=== PATIENT | male | born 1965 | race Caucasian/White ===

== ENCOUNTER 2017-01-19 14:03 | Emergency (ER) | payer OTHER ==
--- NOTE | 2017-01-19 16:18 | ER Document Report ---
ED Medical Screen (RME) - General Chief Complaint: Leg Swelling Stated Complaint: RIGHT LEG PAIN, SWELLING, ANKLE PAIN Time seen by provider: 16:18 Mode of Arrival: Ambulatory Information source: Patient Notes: This is a 51-year-old man with a history of pedal edema presents to the emergency room with swelling of the right lower extremity. Patient denies any fever, chills, nausea vomiting. Patient denies chest pain or shortness of breath. TRAVEL OUTSIDE OF THE [place] IN LAST 30 DAYS: No - Related Data Allergies/Adverse Reactions: No Known Allergies Allergy (Verified 01/19/17 14:51) Past Medical History - Social History Frequency of alcohol use: None Drug Abuse: None Renal/ Medical History: Denies: Hx Peritoneal Dialysis Musculoskeltal Medical History: Reports Hx Arthritis Past Surgical History: Reports: Hx Orthopedic Surgery - left elbow - Immunizations Hx Diphtheria, Pertussis, Tetanus Vaccination: Yes - 2010 Physical Exam - Vital signs Vitals: Temp Pulse Resp BP Pulse Ox 98.6 F 82 20 148/83 H 93 01/19/17 14:50 01/19/17 14:50 01/19/17 14:50 01/19/17 14:50 01/19/17 14:50 Course - Vital Signs Vital signs: Temp Pulse Resp BP Pulse Ox 98.6 F 82 20 148/83 H 93 01/19/17 14:50 01/19/17 14:50 01/19/17 14:50 01/19/17 14:50 01/19/17 14:50
[2017-01-19 16:51] LABS: ABSOLUTE EOSINOPHILS # (AUTO) 0.3 10^3/uL (0.0-0.6); ABSOLUTE LYMPHOCYTES (AUTO) 3.5 10^3/uL (0.5-4.7); ABSOLUTE MONOCYTES (AUTO) 1.3 10^3/uL (0.1-1.4); ABSOLUTE NEUT (AUTO) 3.3 10^3/uL (1.7-8.2); BASOPHILS % (AUTO) 0.4 % (0-2); EOSINOPHILS % (AUTO) 3.8 % (0-6); HEMATOCRIT 48.1 % (37.9-51.0); HEMOGLOBIN 16.4 g/dL (13.5-17.0); HGB HCT DIFFERENCE 1.1; LYMPHOCYTES % (AUTO) 40.9 % (13-45); MEAN CORPUSCULAR HEMOGLOBIN 29.3 pg (27.0-33.4); MEAN CORPUSCULAR HGB CONC 34.1 g/dL (32.0-36.0); MEAN CORPUSCULAR VOLUME 86 fl (80-97); MONOCYTES % (AUTO) 15.5 % (3-13); RED CELL DISTRIBUTION WIDTH 14.1 % (11.5-14.0); SEGMENTED NEUTROPHILS % (AUTO) 39.4 % (42-78); WHITE BLOOD COUNT 8.5 10^3/uL (4.0-10.5)
[2017-01-19 17:07] LABS: ALANINE AMINOTRANSFERASE 39 U/L (21-72); ALBUMIN 4.6 g/dL (3.5-5.0); ALKALINE PHOSPHATASE 118 U/L (38-126); ANION GAP 13 (5-19); ASPARTATE AMINO TRANSFERASE 27 U/L (17-59); BILIRUBIN,DIRECT 0.3 mg/dL (0.0-0.4); BILIRUBIN,TOTAL 0.5 mg/dL (0.2-1.3); BLOOD UREA NITROGEN 18 mg/dL (7-20); CALCIUM 9.9 mg/dL (8.4-10.2); CARBON DIOXIDE 30 mmol/L (22-30); CHLORIDE 100 mmol/L (98-107); CREATININE RESULT 0.83 mg/dL (0.52-1.25); GLUCOSE 91 mg/dL (75-110); POTASSIUM 4.9 mmol/L (3.6-5.0); TOTAL PROTEIN 7.7 g/dL (6.3-8.2)
--- NOTE | 2017-01-19 18:10 | ER Document Report ---
ED Extremity Problem, Lower - General Time seen by provider: 17:38 Mode of Arrival: Ambulatory Information source: Patient TRAVEL OUTSIDE OF THE [place] IN LAST 30 DAYS: No - HPI Location: Leg Occurred: Other - Refer to HPI notes Onset/Duration: Gradual Recent injury: No <BRAXTON PALM - Last Filed: 01/19/17 21:32> <EUNICE ARMIJO - Last Filed: 01/19/17 21:33> - General Chief Complaint: Leg Swelling Stated Complaint: RIGHT LEG PAIN, SWELLING, ANKLE PAIN Notes: Patient is a 51-year-old male presents to emergency department for some redness , swelling and pain to his right leg. Patient denies any recent travel, history of cancer, recent surgeries, or hormone replacement. Patient states he thought he was feverish last night but did not take his temperature. Patient denies any chest pain or cough. Patient states he takes Lasix for chronic leg edema. Patient states that he recently had a Doppler ultrasound of the same leg done at [facility]; he states this ultrasound showed some superficial blood clots. Patient's primary care physician is Dr. Nath. Patient has no known allergies. (BRAXTON PALM) - Related Data Allergies/Adverse Reactions: No Known Allergies Allergy (Verified 01/19/17 14:51) Past Medical History - General Information source: Patient - Social History Smoking Status: Current Every Day Smoker Frequency of alcohol use: None Drug Abuse: None Family History: None Patient has suicidal ideation: No Patient has homicidal ideation: No Musculoskeltal Medical History: Reports Hx Arthritis Skin Medical History: Reports Other - Chronic swelling to the lower extremities Past Surgical History: Reports: Hx Orthopedic Surgery - left elbow - Immunizations Hx Diphtheria, Pertussis, Tetanus Vaccination: Yes - 2010 <BRAXTON PALM - Last Filed: 01/19/17 21:32> Review of Systems - Review of Systems Constitutional: No symptoms reported EENT: No symptoms reported Cardiovascular: No symptoms reported Respiratory: No symptoms reported Gastrointestinal: No symptoms reported Genitourinary: No symptoms reported Male Genitourinary: No symptoms reported Musculoskeletal: See HPI Skin: See HPI Hematologic/Lymphatic: No symptoms reported Neurological/Psychological: No symptoms reported -: Yes All other systems reviewed and negative <BRAXTON PALM - Last Filed: 01/19/17 21:32> Physical Exam <BRAXTON PALM - Last Filed: 01/19/17 21:32> <EUNICE ARMIJO - Last Filed: 01/19/17 21:33> - Vital signs Vitals: Temp Pulse Resp BP Pulse Ox 98.6 F 82 20 148/83 H 93 01/19/17 14:50 01/19/17 14:50 01/19/17 14:50 01/19/17 14:50 01/19/17 14:50 - Notes Notes: GENERAL: Alert, interacts well. No acute distress. HEAD: Normocephalic, atraumatic. EYES: Pupils equal, round, and reactive to light. Extraocular movements intact. ENT: Oral mucosa moist, tongue midline. NECK: Full range of motion. Supple. Trachea midline. LUNGS: Clear to auscultation bilaterally, no wheezes, rales, or rhonchi. No respiratory distress. HEART: Regular rate and rhythm. No murmurs, gallops, or rubs. ABDOMEN: Soft, non-tender. Non-distended. Bowel sounds present in all 4 quadrants. EXTREMITIES: Moves all 4 extremities spontaneously. Increased edema, warmth, and erythema to the right leg; erythema extends up to the mid thigh on the right leg. 2+ pitting edema to the right leg, trace pitting edema to the left leg. Radial and dorsalis pedis pulses 2/4 bilaterally. No cyanosis. NEUROLOGICAL: Alert and oriented x3. Normal speech. PSYCH: Normal affect, normal mood. (BRAXTON PALM) Course - Laboratory Result Diagrams: 01/19/17 16:00 01/19/17 16:00 <BRAXTON PALM - Last Filed: 01/19/17 21:32> - Laboratory Result Diagrams: 01/19/17 16:00 01/19/17 16:00 <EUNICE ARMIJO - Last Filed: 01/19/17 21:33> - Re-evaluation Re-evalutation: 01/19/17 18:39 CBC unremarkable, CMP unremarkable, chest x-ray shows patchy left lower lung airspace disease however given lack of fever, cough, normal lung sounds and no leukocytosis I doubt pneumonia a suspect atelectasis. Patient will be given an incentive spirometer. Venous Doppler ultrasound showed no DVT or superficial thrombosis. Patient's exam is consistent with cellulitis. Discharged to home on Keflex and Bactrim. (EUNICE ARMIJO) - Vital Signs Vital signs: Temp Pulse Resp BP Pulse Ox 98.3 F 84 14 142/89 H 96 01/19/17 19:03 01/19/17 19:03 01/19/17 19:03 01/19/17 19:03 01/19/17 19:03 - Laboratory Laboratory results interpreted by me: 01/19/17 16:00 RBC 5.60 H RDW 14.1 H Seg Neutrophils % 39.4 L Monocytes % 15.5 H Discharge <BRAXTON PALM - Last Filed: 01/19/17 21:32> <EUNICE ARMIJO - Last Filed: 01/19/17 21:33> - Discharge Clinical Impression: Cellulitis of right leg, Atelectasis of left lung Condition: Stable Disposition: HOME, SELF-CARE Additional Instructions: Please use the incentive spirometer 4 times a day. Please take the Bactrim and the Keflex as directed until it is gone. If the redness gets worse, goes higher up your leg or if you develop fevers please return to the emergency department. Prescriptions: Cephalexin Monohydrate [Keflex 500 mg Capsule] 1,000 mg PO BID 7 Days Sulfamethoxazole/Trimethoprim [Bactrim Ds Tablet] 1 each PO BID #14 tablet Forms: Return to Work Referrals: MAXIME KWON MD [Primary Care Provider] - Follow up in 3-5 days Scribe Attestation: 01/19/17 21:33 I personally performed the services described in the documentation, reviewed and edited the documentation which was dictated to the scribe in my presence, and it accurately records my words and actions. (EUNICE ARMIJO) Scribe Documentation - Scribe Written by Christine:: Christine Ricardo, 01/19/17 19:17 acting as scribe for :: Sha <BRAXTON PALM - Last Filed: 01/19/17 21:32>
[2017-01-19] MEDS ORDERED: CEPHALEXIN 500 MG CAPSULE PO ONE (18:38)
[2017-01-19] MEDS ORDERED: SULFAMETHOXAZOLE/TRIMETHOPRIM 800-160 MG TABLET PO ONE (18:38)
[2017-01-19 19:10] VITALS: BP 142/89
== END 2017-01-19 19:05 | disposition home or self-care (01) ==
LOC: ER 14:03
DX: L03.115 Cellulitis of right lower limb (principal); J98.11 Atelectasis; M25.571 Pain in right ankle and joints of right foot; M79.89 Other specified soft tissue disorders; F17.200 Nicotine dependence, unspecified, uncomplicated
CPT/HCPCS: 36415; 71020; 80053; 83880; 85025; 93971; 99284

== ENCOUNTER → 2018-02-02 | Outpatient (CLI) | payer BC ==
[2018-02-02 12:30] LABS: ABSOLUTE EOSINOPHILS # (AUTO) 0.2 10^3/uL (0.0-0.6); ABSOLUTE LYMPHOCYTES (AUTO) 2.1 10^3/uL (0.5-4.7); ABSOLUTE MONOCYTES (AUTO) 0.7 10^3/uL (0.1-1.4); ABSOLUTE NEUT (AUTO) 3.1 10^3/uL (1.7-8.2); BASOPHILS % (AUTO) 0.4 % (0-2); EOSINOPHILS % (AUTO) 3.1 % (0-6); HEMATOCRIT 43.3 % (37.9-51.0); HEMOGLOBIN 14.9 g/dL (13.5-17.0); LYMPHOCYTES % (AUTO) 34.5 % (13-45); MEAN CORPUSCULAR HEMOGLOBIN 29.4 pg (27.0-33.4); MEAN CORPUSCULAR HGB CONC 34.4 g/dL (32.0-36.0); MEAN CORPUSCULAR VOLUME 85 fl (80-97); MONOCYTES % (AUTO) 11.6 % (3-13); PLATELET COUNT 293 10^3/uL (150-450); RED BLOOD COUNT 5.07 10^6/uL (4.35-5.55); SEGMENTED NEUTROPHILS % (AUTO) 50.4 % (42-78); TOTAL CELLS COUNTED % (AUTO) 100 %; WHITE BLOOD COUNT 6.1 10^3/uL (4.0-10.5)
[2018-02-02 12:47] LABS: ALANINE AMINOTRANSFERASE 44 U/L (21-72); ALBUMIN 4.8 g/dL (3.5-5.0); ALKALINE PHOSPHATASE 127 U/L (38-126); ANION GAP 17 (5-19); ASPARTATE AMINO TRANSFERASE 26 U/L (17-59); BILIRUBIN,DIRECT 0.4 mg/dL (0.0-0.4); BILIRUBIN,TOTAL 0.4 mg/dL (0.2-1.3); BLOOD UREA NITROGEN 13 mg/dL (7-20); CALCIUM 9.8 mg/dL (8.4-10.2); CARBON DIOXIDE 25 mmol/L (22-30); CHLORIDE 103 mmol/L (98-107); GLUCOSE 110 mg/dL (75-110); POTASSIUM 4.7 mmol/L (3.6-5.0); SODIUM 144.6 mmol/L (137-145); TOTAL PROTEIN 8.1 g/dL (6.3-8.2)
--- NOTE | 2018-02-02 13:01 | EKG REPORT ---
SEVERITY:- NORMAL ECG - SINUS RHYTHM : Confirmed by: César Kumari MD 02-Feb-2018 13:00:09
--- NOTE | 2018-02-02 13:29 | RADIOLOGY REPORT (SQ) ---
EXAM DESCRIPTION: CHEST PA/LATERAL COMPLETED DATE/TIME: 02/02/2018 12:34 pm REASON FOR STUDY: PRE-OP COMPARISON: Two-view chest 01/19/2017 EXAM PARAMETERS: NUMBER OF VIEWS: two views TECHNIQUE: Digital Frontal and Lateral radiographic views of the chest acquired. RADIATION DOSE: NA LIMITATIONS: none FINDINGS: LUNGS AND PLEURA: No opacities, masses or pneumothorax. No pleural effusion. MEDIASTINUM AND HILAR STRUCTURES: No masses or contour abnormalities. HEART AND VASCULAR STRUCTURES: Heart normal size. No evidence for failure. BONES: Osteopenic with diffuse thoracic degenerative disc change HARDWARE: None in the chest. OTHER: No other significant finding. IMPRESSION: NO SIGNIFICANT RADIOGRAPHIC FINDING IN THE CHEST. TECHNICAL DOCUMENTATION: JOB ID: [id number] [employer]- All Rights Reserved Reading location - IP/workstation name: [email or web address]
== END ==
LOC: OD 11:19
PROVIDERS: ATTEND Surgery
DX: Z01.810 Encounter for preprocedural cardiovascular examination (principal); Z01.811 Encounter for preprocedural respiratory examination; Z01.812 Encounter for preprocedural laboratory examination; Z01.818 Encounter for other preprocedural examination; E66.01 Morbid (severe) obesity due to excess calories; M19.90 Unspecified osteoarthritis, unspecified site; K21.9 Gastro-esophageal reflux disease without esophagitis; I10 Essential (primary) hypertension
CPT/HCPCS: 36415; 71046; 80053; 84443; 85025; 93005; 93010

== ENCOUNTER → 2018-02-10 | Outpatient (CLI) | payer BC ==
--- NOTE | 2018-02-10 11:00 | RADIOLOGY REPORT (SQ) ---
EXAM DESCRIPTION: U/S ABDOMEN LIMITED W/O DOP COMPLETED DATE/TIME: 02/10/2018 10:50 am REASON FOR STUDY: RUQ PAIN (R10.11) R10.11 RIGHT UPPER QUADRANT PAIN COMPARISON: None. TECHNIQUE: Dynamic and static grayscale images acquired of the right upper quadrant and recorded on PACS. Additional selected color Doppler and spectral images recorded. LIMITATIONS: Study limited due to acoustical interference from fat or from air in the bowel. FINDINGS: PANCREAS: Obscured. LIVER: Echotexture is coarse with increased echogenicity consistent with fatty infiltration. No mass es. LIVER VASCULATURE: Normal directional flow of the main portal vein and hepatic veins. GALLBLADDER: Dependent sludge. No stones. Normal wall thickness. No pericholecystic fluid. ULTRASOUND-DETECTED SHARMA'S SIGN: Negative. INTRAHEPATIC DUCTS AND COMMON DUCT: CBD and intrahepatic ducts normal caliber. No filling defects. INFERIOR VENA CAVA: Normal flow. AORTA: Ectasia. RIGHT KIDNEY: Normal size. Normal echogenicity. No solid or suspicious masses. No hydronephros is. No calcifications. PERITONEAL CAVITY AND RIGHT PLEURAL SPACE: No ascites or effusions. OTHER: No other significant finding. IMPRESSION: 1. Gallbladder sludge. No evidence of cholecystitis. 2. Steatosis or medical hepatic disease. No ascites. TECHNICAL DOCUMENTATION: JOB ID: [id number] [employer]- All Rights Reserved Reading location - IP/workstation name: [email or web address]
== END ==
LOC: RAD 09:10
PROVIDERS: ATTEND Surgery
DX: R10.11 Right upper quadrant pain (principal)
CPT/HCPCS: 76705

== ENCOUNTER 2018-02-19 03:51 | Inpatient (IN) | payer BC ==
[2018-02-19] MEDS ORDERED: ASPIRIN 81 MG TABLET, CHEWABLE ONE (03:54)
[2018-02-19] MEDS ORDERED: ASPIRIN 81 MG TABLET, CHEWABLE PO ONE (04:00)
[2018-02-19] MEDS ORDERED: NORMAL SALINE 1000 ML 1,000 ML IV ONE (04:14)
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
[2018-02-19 04:26] LABS: ABSOLUTE BASOPHILS # (AUTO) 0.1 10^3/uL (0.0-0.2); ABSOLUTE EOSINOPHILS # (AUTO) 0.3 10^3/uL (0.0-0.6); ABSOLUTE LYMPHOCYTES (AUTO) 3.2 10^3/uL (0.5-4.7); ABSOLUTE MONOCYTES (AUTO) 1.4 10^3/uL (0.1-1.4); ABSOLUTE NEUT (AUTO) 12.2 10^3/uL (1.7-8.2); BASOPHILS % (AUTO) 0.8 % (0-2); EOSINOPHILS % (AUTO) 1.9 % (0-6); HEMATOCRIT 46.7 % (37.9-51.0); HEMOGLOBIN 16.1 g/dL (13.5-17.0); LYMPHOCYTES % (AUTO) 18.3 % (13-45); MEAN CORPUSCULAR HEMOGLOBIN 29.6 pg (27.0-33.4); MEAN CORPUSCULAR HGB CONC 34.5 g/dL (32.0-36.0); MEAN CORPUSCULAR VOLUME 86 fl (80-97); MONOCYTES % (AUTO) 8.2 % (3-13); PLATELET COUNT 371 10^3/uL (150-450); RED BLOOD COUNT 5.44 10^6/uL (4.35-5.55); RED CELL DISTRIBUTION WIDTH 13.8 % (11.5-14.0); SEGMENTED NEUTROPHILS % (AUTO) 70.8 % (42-78); TOTAL CELLS COUNTED % (AUTO) 100 %; WHITE BLOOD COUNT 17.2 10^3/uL (4.0-10.5)
[2018-02-19 04:41] LABS: ALANINE AMINOTRANSFERASE 111 U/L (21-72); ALKALINE PHOSPHATASE 151 U/L (38-126); ANION GAP 17 (5-19); ASPARTATE AMINO TRANSFERASE 98 U/L (17-59); BILIRUBIN,DIRECT 1.2 mg/dL (0.0-0.4); BILIRUBIN,TOTAL 1.4 mg/dL (0.2-1.3); BLOOD UREA NITROGEN 20 mg/dL (7-20); CALCIUM 9.8 mg/dL (8.4-10.2); CARBON DIOXIDE 22 mmol/L (22-30); CHLORIDE 105 mmol/L (98-107); CREATINE KINASE 77 U/L (55-170); GLUCOSE 117 mg/dL (75-110); POTASSIUM 4.1 mmol/L (3.6-5.0); TOTAL PROTEIN 8.7 g/dL (6.3-8.2)
[2018-02-19] MEDS ORDERED: MORPHINE SULFATE 10 MG/ML INJ IV ONE (04:48)
[2018-02-19 04:52] LABS: CREATINE KINASE MB 0.73 ng/mL (<4.55)
--- NOTE | 2018-02-19 04:53 | RADIOLOGY REPORT (SQ) ---
EXAM DESCRIPTION: XR CHEST 1 VIEW CLINICAL HISTORY: 53 years Male, CP chest pain COMPARISON: 5.21.18 NUMBER OF VIEWS/TECHNIQUE: 1/AP FINDINGS: Adequate lung volume, clear parenchyma, normal cardiac silhouette, and intact bony thorax. IMPRESSION: No acute cardiopulmonary findings.
[2018-02-19 04:54] LABS: TROPONIN I < 0.012 ng/mL
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
--- NOTE | 2018-02-19 07:19 | RADIOLOGY REPORT (SQ) ---
EXAM DESCRIPTION: US ABDOMEN DOPPLER LIMITED CLINICAL HISTORY: 53 years Male, RUQ US for upper abdominal pain Comparison: None. LIMITATIONS: None. FINDINGS: Several gallstones, mobile, 0.2 cm gallbladder wall thickness, negative sonographic Angel's test, liver, a 0.3-cm diameter common bile duct, no intrahepatic ductal dilation, 12-cm right kidney, obscured pancreas, visualized vasculature/abdominal aorta, and no significant ascites appear otherwise unremarkable. IMPRESSION: No acute findings. Cholelithiasis. Obscured pancreas.
[2018-02-19] MEDS ORDERED: GLUCAGON,HUMAN RECOMB 1 MG INJ SUBCUT PRN (09:05)
[2018-02-19] MEDS ORDERED: DEXTROSE 40% GEL 15 GM TUBE PO PRN ×2 (09:05)
[2018-02-19] MEDS ORDERED: IPRATROPIUM/ALBUTEROL 0.5-2.5 MG/3 ML AMPUL NEB PRN (09:05)
[2018-02-19] MEDS ORDERED: PROMETHAZINE HCL INJ 25 MG/1 ML VIAL IV PRN (09:05)
[2018-02-19] MEDS ORDERED: NORMAL SALINE 1000 ML 1,000 ML IV PRN (09:05)
[2018-02-19] MEDS ORDERED: ONDANSETRON HCL INJ/PF 4 MG/2 ML SDV IV PRN (09:05)
[2018-02-19] MEDS ORDERED: DEXTROSE 50%-WATER 25 GM/50 ML DISP.SYRIN IV PRN ×2 (09:05)
[2018-02-19 09:14] LABS: TRIGLYCERIDES 209 mg/dL (<150)
[2018-02-19 09:25] LABS: DIRECT LDL 104 mg/dL (<100)
[2018-02-19 09:28] LABS: VLDL CHOLESTEROL 41.8 mg/dL (10-31)
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
[2018-02-19] MEDS ORDERED: (PENDING PHARMACY ID) (Buprenorphine Hcl/Naloxone Hcl [Suboxone 8 Mg-2 Mg Sl Film] 1 FILM) SL SCH (10:00)
[2018-02-19] MEDS: ENOXAPARIN SODIUM INJ 40 MG/0.4 ML DISP.SYRIN SUBCUT SCH (11:17)
[2018-02-19] MEDS: NICOTINE 21 MG/24 HR PATCH.TD24 TD SCH (11:18)
--- NOTE | 2018-02-19 11:43 | EKG REPORT ---
SEVERITY:- NORMAL ECG - SINUS RHYTHM : Confirmed by: Yesy Coronel MD 19-Feb-2018 11:42:07
[2018-02-19] MEDS: MORPHINE SULFATE 10 MG/ML INJ IV PRN ×2 (18:30→22:50)
[2018-02-20] MEDS: MORPHINE SULFATE 10 MG/ML INJ IV PRN ×5 (04:00→22:26)
[2018-02-20 07:32] LABS: ABSOLUTE EOSINOPHILS # (AUTO) 0.2 10^3/uL (0.0-0.6); ABSOLUTE LYMPHOCYTES (AUTO) 2.1 10^3/uL (0.5-4.7); ABSOLUTE MONOCYTES (AUTO) 0.8 10^3/uL (0.1-1.4); ABSOLUTE NEUT (AUTO) 3.2 10^3/uL (1.7-8.2); BASOPHILS % (AUTO) 0.5 % (0-2); HEMATOCRIT 40.8 % (37.9-51.0); MEAN CORPUSCULAR HEMOGLOBIN 29.4 pg (27.0-33.4); MEAN CORPUSCULAR HGB CONC 34.2 g/dL (32.0-36.0); MEAN CORPUSCULAR VOLUME 86 fl (80-97); PLATELET COUNT 257 10^3/uL (150-450); RED BLOOD COUNT 4.76 10^6/uL (4.35-5.55); RED CELL DISTRIBUTION WIDTH 13.8 % (11.5-14.0); SEGMENTED NEUTROPHILS % (AUTO) 50.5 % (42-78); TOTAL CELLS COUNTED % (AUTO) 100 %; WHITE BLOOD COUNT 6.3 10^3/uL (4.0-10.5)
[2018-02-20 07:46] LABS: INTERNATIONAL RATION (INR) 1.02; PROTHROMBIN TIME 13.9 SEC (11.4-15.4)
[2018-02-20 07:48] LABS: ALANINE AMINOTRANSFERASE 74 U/L (21-72); ALBUMIN 3.9 g/dL (3.5-5.0); ALKALINE PHOSPHATASE 123 U/L (38-126); ANION GAP 11 (5-19); ASPARTATE AMINO TRANSFERASE 37 U/L (17-59); BILIRUBIN,DIRECT 0.5 mg/dL (0.0-0.4); BILIRUBIN,TOTAL 0.6 mg/dL (0.2-1.3); BLOOD UREA NITROGEN 15 mg/dL (7-20); CALCIUM 9.4 mg/dL (8.4-10.2); CARBON DIOXIDE 22 mmol/L (22-30); CHLORIDE 112 mmol/L (98-107); GLUCOSE 90 mg/dL (75-110); POTASSIUM 4.1 mmol/L (3.6-5.0); SODIUM 145.3 mmol/L (137-145); TOTAL PROTEIN 6.8 g/dL (6.3-8.2)
[2018-02-20 07:59] LABS: LIPASE 3178.6 U/L (23-300)
[2018-02-20] MEDS: NICOTINE 21 MG/24 HR PATCH.TD24 TD SCH (08:35)
[2018-02-20] MEDS: ENOXAPARIN SODIUM INJ 40 MG/0.4 ML DISP.SYRIN SUBCUT SCH (08:35)
[2018-02-20] MEDS ORDERED: 1/2 NORMAL SALINE 1,000 ML IV PRN (13:04)
--- NOTE | 2018-02-20 13:24 | PDOC PROGRESS REPORT ---
Subjective Progress Note for:: 02/20/18 Subjective:: Continues to have epigastric pain. Improved, but still there. Fairly irritated it being n.p.o. and having to sit here and do nothing. Reason For Visit: PANCREATITIS Physical Exam Vital Signs: Temp Pulse Resp BP Pulse Ox 97.6 F 68 12 118/71 96 02/20/18 11:23 02/20/18 11:40 02/20/18 11:40 02/20/18 11:23 02/20/18 11:40 Intake & Output 02/19/18 02/20/18 02/21/18 05:59 05:59 05:59 Intake Total 300 450 Balance 300 450 Weight 186 lb 4.65 oz General appearance: PRESENT: no acute distress Respiratory exam: PRESENT: clear to auscultation iliana Cardiovascular exam: PRESENT: RRR GI/Abdominal exam: PRESENT: soft, tenderness - Moderate epigastric Extremities exam: ABSENT: other - No edema Musculoskeletal exam: PRESENT: normal inspection Neurological exam: PRESENT: alert Psychiatric exam: PRESENT: appropriate affect Skin exam: PRESENT: warm Results Laboratory Results: 02/20/18 07:05 02/20/18 07:05 02/20/18 02/20/18 02/20/18 07:05 07:05 07:05 WBC 6.3 RBC 4.76 Hgb 14.0 D Hct 40.8 MCV 86 MCH 29.4 MCHC 34.2 RDW 13.8 Plt Count 257 Seg Neutrophils % 50.5 Lymphocytes % 34.0 Monocytes % 12.0 Eosinophils % 3.0 Basophils % 0.5 Absolute Neutrophils 3.2 Absolute Lymphocytes 2.1 Absolute Monocytes 0.8 Absolute Eosinophils 0.2 Absolute Basophils 0.0 Sodium 145.3 H Potassium 4.1 Chloride 112 H Carbon Dioxide 22 Anion Gap 11 BUN 15 Creatinine 0.77 Est GFR ( Amer) > 60 Est GFR (Non-Af Amer) > 60 Glucose 90 Calcium 9.4 Magnesium 2.2 Iron 52.0 Total Bilirubin 0.6 AST 37 ALT 74 H Alkaline Phosphatase 123 Total Protein 6.8 Albumin 3.9 Lipase 3178.6 H TSH 0.56 02/20/18 07:05 NT-Pro-B Natriuret Pep 330 Impressions: Chest X-Ray 02/19/18 04:00 IMPRESSION: No acute cardiopulmonary findings. Abdomen Ultrasound 02/19/18 05:34 IMPRESSION: No acute findings. Cholelithiasis. Obscured pancreas. Assessment & Plan - Diagnosis (1) Pancreatitis, acute Qualifiers: Pancreatitis type: idiopathic Acute pancreatitis complication: unspecified Qualified Code(s): K85.00 - Idiopathic acute pancreatitis without necrosis or infection Is this a current diagnosis for this admission?: Yes Plan: Unclear etiology, but given how rapidly his lipase is coming down I would suspect a small stone not seen on imaging, that is now passed. Continue n.p.o. , slow IV hydration, and recheck his labs and exam in the morning. (2) Hx of hepatitis C Is this a current diagnosis for this admission?: No Plan: Status post Harvoni treatment. Unclear if this has any relevance to his current presentation. (3) Cigarette nicotine dependence Is this a current diagnosis for this admission?: Yes Plan: Nicotine replacement.
[2018-02-20] MEDS ORDERED: (PENDING PHARMACY ID) (Buprenorphine Hcl/Naloxone Hcl [Suboxone 8 Mg-2 Mg Sl Film] 1 FILM) SL SCH (18:00)
[2018-02-21] MEDS: MORPHINE SULFATE 10 MG/ML INJ IV PRN ×2 (05:03→12:12)
[2018-02-21 08:14] LABS: ALBUMIN 3.9 g/dL (3.5-5.0); ANION GAP 13 (5-19); BLOOD UREA NITROGEN 12 mg/dL (7-20); CALCIUM 9.5 mg/dL (8.4-10.2); CARBON DIOXIDE 21 mmol/L (22-30); CHLORIDE 110 mmol/L (98-107); GLUCOSE 90 mg/dL (75-110); LIPASE 839.2 U/L (23-300); PHOSPHORUS 3.6 mg/dL (2.5-4.5); POTASSIUM 4.4 mmol/L (3.6-5.0); SODIUM 144.1 mmol/L (137-145)
[2018-02-21] MEDS: NICOTINE 21 MG/24 HR PATCH.TD24 TD SCH (09:24)
[2018-02-21] MEDS: ENOXAPARIN SODIUM INJ 40 MG/0.4 ML DISP.SYRIN SUBCUT SCH (09:24)
[2018-02-21] MEDS ORDERED: TRAMADOL HCL 50 MG TABLET PO PRN (12:46)
[2018-02-21 14:25] VITALS: BP 112/56
--- NOTE | 2018-02-23 13:01 | DISCHARGE SUMMARY E ---
Discharge Summary NAME: NATASHA PEMBERTON : 1965 AGE: 53Y ADMITTED: 02/19/2018 DISCHARGED: 02/21/2018 ADMISSION DIAGNOSES: 1. Pancreatitis. 2. Hepatitis C. 3. Cigarette smoking. DISCHARGE DIAGNOSES: 1. Pancreatitis, resolved. 2. Hepatitis C. 3. Smoking. 4. Hypertension. IMAGING: CT of the abdomen and chest showed severe pancreatitis. Ultrasound of the abdomen showed multiple gallbladder stones, nonobstructive. HOSPITAL COURSE: The patient is a 53-year-old male, who has a past medical history of hypertension and . The patient was admitted for abdominal pain, epigastric pain, nausea. He was found to have severe pancreatitis. He was intubated when he was admitted to us. He was admitted for pancreatitis. Initially his lipase on admission was 7548 and now today has come down to 839. The abdominal pain has resolved. His CT scan had shown pancreatitis. The ultrasound showed gallbladder stones, nonobstructive. The patient today tolerated regular diet. No abdominal pain. PHYSICAL EXAMINATION: VITAL SIGNS: Blood pressure 112/56, temperature 98.4, heart rate 57, respirations and saturation 100%. HEENT: Head is normocephalic, atraumatic. Pupils are round and reactive to light and accommodation bilaterally. Extraocular movements are intact. Ears: Tympanic membranes are intact bilaterally. No discharge from the ears. No discharge from the nose. NECK: Supple. No increased JVD, no thyromegaly, and no lymphadenopathy. CARDIOVASCULAR: Normal S1, S2. Regular rate, no murmur or gallop. RESPIRATORY: Lungs clear. ABDOMEN: Soft. MUSCULOSKELETAL: No edema. NEUROLOGIC: Awake, alert. LABORATORY DATA: Triglycerides 209, HDL 37, LDL 104. DISCHARGE MEDICATIONS: 1. Primidone every 8 hours p.r.n. 2. 12.5 mg p.o. every 6 hours p.r.n. 3. Cymbalta 30 mg b.i.d. 4. Lyrica 300 mg daily. 5. Potassium chloride 10 mEq daily. 6. Lisinopril 10 mg daily. 7. Vyvanse 60 mg daily. 8. Lasix 40 mg twice a day. 9. Suboxone 8 mg daily. FOLLOWUP: 1. The patient has an appointment with General Surgery in [place] for cholecystectomy. 2. Follow up with the primary care physician in 1 week. 3. Low-fat, low-protein diet. DICTATING PHYSICIAN: SHADE RODRIGUEZ M.D. [id number] PHY#: [id number] ID: [id number] JOB#: [id number] ACCT: [id number] cc:SHADE RODRIGUEZ M.D. [facility] >
== END 2018-02-21 14:35 | disposition home or self-care (01) | DRG 440 ==
LOC: ER 03:51 → EH 08:51 → 5 11:54
PROVIDERS: ADMIT Internal Medicine; ATTEND Internal Medicine
DX: K85.00 Idiopathic acute pancreatitis without necrosis or infection (principal); I10 Essential (primary) hypertension; K80.80 Other cholelithiasis without obstruction; B19.20 Unspecified viral hepatitis C without hepatic coma; M19.90 Unspecified osteoarthritis, unspecified site; F17.210 Nicotine dependence, cigarettes, uncomplicated
CPT/HCPCS: 36415; 71045; 71275; 74174; 76705; 80053; 80061; 80069; 82550; 82553; 83540; 83690; 83735; 83880; 84443; 84484; 85025; 85610; 93005; 93010; 93976; 96361; 96374; 99285; J1650; J2270; J7030